=== PATIENT | female | born 1960 | race American Indian/Alaskan Native ===

== ENCOUNTER 2016-12-04 21:08 | Emergency (ER) | payer MEDICARE, MEDICAID ==
[2016-12-04 23:13] VITALS: BP 144/78
--- NOTE | 2016-12-05 09:53 | CR ---
Foot Comp Min 3V Rt INDICATION: pain, swelling, ? Osteomylitis FINDINGS: Mild degenerative narrowing first MTP joint with mild bunion deformity. Soft tissue swelli ng of the second toe. No periosteal reaction or cortical destruction.
--- NOTE | 2016-12-24 18:05 | EDM.PDOC ---
ED HPI GENERAL MEDICAL PROBLEM - General Chief Complaint: Skin Complaint Stated Complaint: R FOOT Time Seen by Provider: 12/04/16 23:13 Source of Information: Reports: Patient History Limitations: Reports: No Limitations - History of Present Illness INITIAL COMMENTS - FREE TEXT/NARRATIVE: History of present illness: [Patient presents with possible infection of the right great toe. This is been going on for a few days. She has no fever with this.] Review of systems: As per history of present illness and below otherwise all systems reviewed and negative. Past medical history: As per history of present illness and as reviewed below otherwise noncontributory. Surgical history: As per history of present illness and as reviewed below otherwise noncontributory. Social history: No reported history of drug or alcohol abuse. Family history: As per history of present illness and as reviewed below otherwise noncontributory. Physical exam: HEENT: Atraumatic, normocephalic, Lungs: Clear to auscultation Heart: S1S2, regular Extremities: The right great toe is mildly erythematous and slightly warm without evidence for an ingrown toenail. Neuro: Awake, alert, oriented. Exam nonfocal. Diagnostics: [] Therapeutics: [] Impression: [Cellulitis right great toe] Plan: [Patient was placed on Keflex and is to follow up with primary care if not improving. She can also use warm sudsy soaks.] Definitive disposition and diagnosis as appropriate pending reevaluation and review of above. Right Feet Pain Score (Numeric/FACES): 6 - Related Data Allergies Allergy/AdvReac Type Severity Reaction Status Date / Time No Known Allergies Allergy Verified 12/04/16 23:13 Home Meds: Home Meds Gabapentin [Gabapentin] 600 mg PO TID 04/13/13 [History] Iron Polysaccharide Complex [Poly-Iron] 150 mg PO BID 04/13/13 [History] carBAMazepine [Carbamazepine] 400 mg PO DAILY 04/13/13 [History] carBAMazepine [Carbamazepine] 600 mg PO DAILY 04/13/13 [History] Triamcinolone Acetonide [Kenalog 0.1% Crm] 1 applic TOP BID PRN 12/04/16 [ History] Past Medical History HEENT History: Reports: Impaired Vision [employer]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 ED EXAM, SKIN/RASH Exam: See Below Course - Vital Signs Last Recorded V/S: Last Vital Signs Temp 35.4 C 12/04/16 23:12 Pulse 81 12/04/16 23:12 Resp 16 12/04/16 23:12 BP 144/78 H 12/04/16 23:12 Pulse Ox 98 12/04/16 23:12 - Orders/Labs/Meds Labs: Laboratory Tests 12/04/16 Range/Units 00:00 WBC 9.2 (4.5-11.0) K/uL RBC 4.51 (3.30-5.50) M/uL Hgb 13.6 (12.0-15.0) g/dL Hct 39.2 (36.0-48.0) % MCV 87 (80-98) fL MCH 30 (27-31) pg MCHC 35 (32-36) % Plt Count 348 (150-400) K/uL Neut % (Auto) 66 (36-66) % Lymph % (Auto) 20 L (24-44) % [place] % (Auto) 13 H (2-6) % Eos % (Auto) 0 L (2-4) % Baso % (Auto) 1 (0-1) % ESR 23 (0-25) mm/hr Departure - Departure Time of Disposition: 18:05 Disposition: Home, Self-Care 01 Clinical Impression: Cellulitis Qualifiers: Site of cellulitis: extremity Site of cellulitis of extremity: lower extremity Laterality: right Qualified Code(s): L03.115 - Cellulitis of right lower limb - Discharge Information Instructions: Cellulitis, Adult Referrals: Zuri Lew NP [Primary Care Provider] - Forms: ED Department Discharge Additional Instructions: Please follow-up with your primary care doctor if not improving. You can also use warm sudsy soaks to try to help resolve this.
== END 2016-12-05 01:21 | disposition home or self-care (01) ==
LOC: JP.ED 21:08
DX: L03.031 Cellulitis of right toe (principal); Z98.51 Tubal ligation status; Z79.899 Other long term (current) drug therapy
CPT/HCPCS: 36415; 73630-26-RT; 73630-RT; 85025; 85651; 99282; 99283

== ENCOUNTER 2017-06-25 13:30 | Emergency (ER) | payer MEDICARE, MEDICAID ==
--- NOTE | 2017-06-25 16:36 | EDM.PDOC ---
ED HPI GENERAL MEDICAL PROBLEM - General Chief Complaint: Neurological Problem Stated Complaint: HAD A SEIZURE Time Seen by Provider: 06/25/17 14:13 Source of Information: Reports: Patient, Other (Zuri Lew from clinic) History Limitations: Reports: No Limitations - History of Present Illness INITIAL COMMENTS - FREE TEXT/NARRATIVE: This patient was sent to the emergency department by her provider Zuri Lew. There is some concern about seizures and hyponatremia. The patient's has a history of what sounds like petit mal seizures and takes Tegretol for this. She was seen in clinic on the her sodium had dropped down to 129 from a previous 134 on about 04 June. There is no reason found for the drop in sodium today sodium is gone down to 124. The patient describes the episodes as first of all seeing a quivering light in her eyes. She was sitting on a bench and the bus and she said her legs just wouldn't work so she could get out of the bus had to be apparently lifted out. She didn't note any kind of jerking and she was completely conscious during the entire episode. Her stepmom says she 's had several episodes like this in the past week some time she seems weak afterwards but never actually post ictal. The episode today lasted about 5 minutes. Stepmotessie says the previous ones sometimes last as much is 2 hours. Her previous seizure activity included jerks and smacking of the lips and so forth so this episode is completely different. Arrangements were made for her to see a neurologist in [place] on August 11. Patient also does not have any symptoms of dysuria see labs patient denies excessive water drinking and other than this episode believe she is pretty healthy given the stepmom concurs. - Related Data Allergies Allergy/AdvReac Type Severity Reaction Status Date / Time No Known Allergies Allergy Verified 06/25/17 13:58 Home Meds: Home Meds Gabapentin [Gabapentin] 600 mg PO TID 04/13/13 [History] Iron Polysaccharide Complex [Poly-Iron] 150 mg PO BID 04/13/13 [History] carBAMazepine [Carbamazepine] 1,600 mg PO ASDIRECTED 04/13/13 [History] Triamcinolone Acetonide [Kenalog 0.1% Crm] 1 applic TOP BID PRN 12/04/16 [ History] Past Medical History HEENT History: Reports: Impaired Vision Cardiovascular History: Reports: Hypertension Genitourinary History: Reports: Urinary Incontinence 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 mental redardation Hematologic History: Reports: Anemia, Iron Deficiency Dermatologic History: Reports: Cellulitis - Infectious Disease History Infectious Disease History: Reports: Other (See Below) Other Infectious Disease History: unknown - Past Surgical History HEENT Surgical History: Reports: Oral Surgery GI Surgical History: Reports: Colonoscopy Female Surgical History: Reports: Tubal Ligation Social & Family History - Tobacco Use Smoking Status *Q: Never Smoker Second Hand Smoke Exposure: No - Caffeine Use Caffeine Use: Reports: Coffee, Soda - Alcohol Use Days Per Week of Alcohol Use: 0 - Recreational Drug Use Recreational Drug Use: No ED ROS GENERAL - Review of Systems Review Of Systems: See Below Constitutional: Reports: No Symptoms HEENT: Reports: No Symptoms Respiratory: Reports: No Symptoms Cardiovascular: Reports: No Symptoms Endocrine: Reports: No Symptoms GI/Abdominal: Reports: No Symptoms : Reports: No Symptoms Musculoskeletal: Reports: No Symptoms Skin: Reports: No Symptoms Neurological: Reports: Seizure Psychiatric: Reports: No Symptoms Hematologic/Lymphatic: Reports: No Symptoms Immunologic: Reports: No Symptoms - Physical Exam Exam: See Below Exam Limited By: No Limitations (She seems mentally slow but is able to give a fairly good history) General Appearance: Alert, WD/WN, No Apparent Distress, Other (She looks a little bit barnes faced but her stepmom says that this is her normal appearance) Eye Exam: Bilateral Eye: EOMI, PERRL Ears: Normal External Exam Throat/Mouth: Normal Inspection Head Exam: Atraumatic Neck: Normal Inspection Respiratory/Chest: No Respiratory Distress (I think another liter 5), Lungs Clear Cardiovascular: Normal Peripheral Pulses, Regular Rate, Rhythm GI/Abdominal: Normal Bowel Sounds, Soft, Non-Tender Neuro Exam (Abbreviated): Alert, Oriented, CN II-XII Intact, Normal Cognition, Other (Gait seems just a little bit wobbly she was also slightly wobbly on Romberg testing but not so much as to cause a positive test. Rapid alternating movements all normal) DTR: 2+: Bicep (R), Bicep (L), Patella (R), Patella (L) Extremities: Normal Inspection Psychiatric: Normal Affect, Normal Mood Skin Exam: Warm, Dry Course - Vital Signs Last Recorded V/S: Last Vital Signs Temp 36.3 C 06/25/17 13:52 Pulse 87 06/25/17 16:37 Resp 16 06/25/17 16:37 BP 145/80 H 06/25/17 16:37 Pulse Ox 98 06/25/17 16:37 - Orders/Labs/Meds Orders: Active Orders 24 hr Category Date Time Status Chest 2V [CR] Urgent Exams 06/25/17 14:55 Taken CORTISOL [REF] Stat Lab 06/25/17 15:00 Received OSMOLALITY [REF] Stat Lab 06/25/17 15:10 Received OSMOLALITY,URINE RANDOM [REF] Stat Lab 06/25/17 15:10 Received Labs: Laboratory Tests 06/25/17 06/25/17 06/25/17 Range/Units 15:00 15:00 15:00 WBC 6.6 (4.5-11.0) K/uL RBC 3.69 (3.30-5.50) M/uL Hgb 10.4 L D (12.0-15.0) g/dL Hct 31.2 L (36.0-48.0) % MCV 85 (80-98) fL MCH 28 (27-31) pg MCHC 33 (32-36) % Plt Count 483 H (150-400) K/uL Neut % (Auto) 73 H (36-66) % Lymph % (Auto) 14 L (24-44) % [place] % (Auto) 12 H (2-6) % Eos % (Auto) 0 L (2-4) % Baso % (Auto) 0 (0-1) % Sodium 123 L (140-148) mmol/L Potassium 4.5 (3.6-5.2) mmol/L Chloride 92 L (100-108) mmol/L Carbon Dioxide 24 (21-32) mmol/L Anion Gap 11.5 (5.0-14.0) mmol/L BUN 9 (7-18) mg/dL Creatinine 0.6 (0.6-1.0) mg/dL Est Cr Clr Drug Dosing 84.78 mL/min Estimated GFR (MDRD) > 60 (>60) Glucose 97 (74-106) mg/dL Calcium 8.3 L (8.5-10.1) mg/dL Total Bilirubin 0.6 (0.2-1.0) mg/dL AST 83 H (15-37) U/L ALT 21 (12-78) U/L Alkaline Phosphatase 463 H (46-116) U/L Total Protein 7.5 (6.4-8.2) g/dL Albumin 3.0 L (3.4-5.0) g/dL Globulin 4.5 H (2.3-3.5) g/dL Albumin/Globulin Ratio 0.7 L (1.2-2.2) TSH, Ultra Sensitive 3.465 (0.358-3.740) uIU/mL Urine Color Urine Appearance Urine pH (4.5-8.0) Ur Specific [place] (1.008-1.030) Urine Protein (NEGATIVE) mg/dL Urine Glucose (UA) (NEGATIVE) mg/dL Urine Ketones (NEGATIVE) mg/dL Urine Occult Blood (NEGATIVE) Urine Nitrite (NEGATIVE) Urine Bilirubin (NEGATIVE) Urine Urobilinogen (NORMAL) mg/dL Ur Leukocyte Esterase (NEGATIVE) Urine RBC (0-5) Urine WBC (0-5) Ur Epithelial Cells Amorphous Sediment Urine Bacteria Urine Mucus Ur Random Sodium (20-110) mmol/L 06/25/17 06/25/17 Range/Units 15:04 15:04 WBC (4.5-11.0) K/uL RBC (3.30-5.50) M/uL Hgb (12.0-15.0) g/dL Hct (36.0-48.0) % MCV (80-98) fL MCH (27-31) pg MCHC (32-36) % Plt Count (150-400) K/uL Neut % (Auto) (36-66) % Lymph % (Auto) (24-44) % [place] % (Auto) (2-6) % Eos % (Auto) (2-4) % Baso % (Auto) (0-1) % Sodium (140-148) mmol/L Potassium (3.6-5.2) mmol/L Chloride (100-108) mmol/L Carbon Dioxide (21-32) mmol/L Anion Gap (5.0-14.0) mmol/L BUN (7-18) mg/dL Creatinine (0.6-1.0) mg/dL Est Cr Clr Drug Dosing mL/min Estimated GFR (MDRD) (>60) Glucose (74-106) mg/dL Calcium (8.5-10.1) mg/dL Total Bilirubin (0.2-1.0) mg/dL AST (15-37) U/L ALT (12-78) U/L Alkaline Phosphatase (46-116) U/L Total Protein (6.4-8.2) g/dL Albumin (3.4-5.0) g/dL Globulin (2.3-3.5) g/dL Albumin/Globulin Ratio (1.2-2.2) TSH, Ultra Sensitive (0.358-3.740) uIU/mL Urine Color Yellow Urine Appearance Turbid Urine pH 6.5 (4.5-8.0) Ur Specific [place] 1.010 (1.008-1.030) Urine Protein 30 H (NEGATIVE) mg/dL Urine Glucose (UA) Normal (NEGATIVE) mg/dL Urine Ketones Negative (NEGATIVE) mg/dL Urine Occult Blood Large (NEGATIVE) Urine Nitrite Positive H (NEGATIVE) Urine Bilirubin Negative (NEGATIVE) Urine Urobilinogen Normal (NORMAL) mg/dL Ur Leukocyte Esterase Large (NEGATIVE) Urine RBC Packed H (0-5) Urine WBC Packed H (0-5) Ur Epithelial Cells Few Amorphous Sediment Few Urine Bacteria Many Urine Mucus Few Ur Random Sodium 50 (20-110) mmol/L - Radiology Interpretation Free Text/Narrative:: Chest x-ray unremarkable - Re-Assessments/Exams Free Text/Narrative Re-Assessment/Exam: 06/25/17 16:58 Labs were drawn on this patient when note sodium is now 123. A urinalysis shows evidence of a bladder infection. I discussed labs with Dr. West. This patient appears to be euvolemic so hydration is not indicated on this patient. My impression is that this is more of a migrainous phenomenon rather than actual seizures. The plan will be to go ahead and do water restriction add additional salt she'll get an MRI tomorrow and Zuri Lew is arranging that. Urine and serum osmolality have been ordered as well as TSH and cortisol levels spot urine sodium also. She'll follow -up in clinic for the rest of this workup. Departure - Departure Time of Disposition: 16:32 Disposition: Home, Self-Care 01 Condition: Fair Clinical Impression: Seizures complicating infection, Hyponatremia - Discharge Information Instructions: Hyponatremia, [id number], Seizure, Adult Referrals: Zuri Lew NP [Primary Care Provider] - Forms: ED Department Discharge Additional Instructions: It isn't clear whether or not the episodes you're having are seizures. It could also be a migraine equivalent where blood to a certain part of your brain gets cut off because of spasms of the blood vessels. You have a low sodium which is getting progressively lower over the past few weeks. A low sodium can lead to seizures. You also have a urinary tract infection. You will need to do the following: Get a brain MRI tomorrow morning. Restrict your water intake. Decreased water intake by about 2 or 3 glasses of water per day. You may increase salt intake. The easiest way is to eat a bag of salted popcorn daily. Do this each day until your doctor tells you otherwise. Continue all of your regular medications including the carbamazepine. Carbamazepine can cause your sodium to drop so at some time in the near future your Dr. may stop this medication but don't stop it until told to do so. Take Bactrim DS one tablet twice daily for one week for a urinary tract infection. The prescription will say for 10 days but you only needed for a week. - My Orders Last 24 Hours: My Active Orders 06/25/17 14:55 Chest 2V [CR] Urgent 06/25/17 15:00 CORTISOL [REF] Stat 06/25/17 15:10 OSMOLALITY [REF] Stat OSMOLALITY,URINE RANDOM [REF] Stat - Assessment/Plan Last 24 Hours: My Active Orders 06/25/17 14:55 Chest 2V [CR] Urgent 06/25/17 15:00 CORTISOL [REF] Stat 06/25/17 15:10 OSMOLALITY [REF] Stat OSMOLALITY,URINE RANDOM [REF] Stat
[2017-06-25 16:38] VITALS: BP 145/80
--- NOTE | 2017-06-26 09:01 | CR ---
Chest 2V HISTORY: Hyponatremia. COMPARISON: 01/07/2013 FINDINGS: Linear scarring or atelectatic change at the peripheral right lung base. Cardiac size and p ulmonary vessels normal. There are no infiltrates or effusions. No pneumothorax. The osseous structur es appear normal. IMPRESSION: No acute pulmonary disease.
== END 2017-06-25 16:52 | disposition home or self-care (01) ==
LOC: JP.ED 13:30
DX: R56.9 Unspecified convulsions (principal); E87.1 Hypo-osmolality and hyponatremia; I10 Essential (primary) hypertension
CPT/HCPCS: 36415; 71046; 71046-26; 80053; 81001; 82533; 83930; 83935; 84300; 84443; 85025; 99284; 99285

== ENCOUNTER 2017-06-28 11:05 | Emergency (ER) | payer MEDICARE, MEDICAID ==
--- NOTE | 2017-06-28 11:58 | EDM.PDOC ---
ED HPI GENERAL MEDICAL PROBLEM - General Chief Complaint: General Stated Complaint: NOT FEELING WELL Time Seen by Provider: 06/28/17 11:45 Source of Information: Reports: Patient, Family, Old Records History Limitations: Reports: No Limitations - History of Present Illness INITIAL COMMENTS - FREE TEXT/NARRATIVE: 56 yo female here after a fall last night. Has been intermittently unsteady on her feet since being seen 06/25/17 for hyponatremia and a UTI. Is on TMP/SMZ for the UTI and family thinks this is worse. No culture was set up apparently. Has been trying to restrict water as directed. No follow up appt was made in the clinic to date. Had a brain MRI 06/26/17 that was nonspecific. Not running fevers. 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 (see below) (Bactrim and water restriction.) Right Upper Back Pain Score (Numeric/FACES): 10 - Related Data Allergies Allergy/AdvReac Type Severity Reaction Status Date / Time No Known Allergies Allergy Verified 06/28/17 11:35 Home Meds: Home Meds Gabapentin [Gabapentin] 600 mg PO TID 04/13/13 [History] Iron Polysaccharide Complex [Poly-Iron] 150 mg PO BID 04/13/13 [History] carBAMazepine [Carbamazepine] 200 mg PO ASDIRECTED 04/13/13 [History] Sulfamethoxazole/Trimethoprim [Sulfamethoxazole-Tmp Ds Tablet] mg PO BID [History] Past Medical History HEENT History: Reports: Impaired Vision Cardiovascular History: Reports: Hypertension Genitourinary History: Reports: Urinary Incontinence 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 mental redardation Hematologic History: Reports: Anemia, Iron Deficiency Dermatologic History: Reports: Cellulitis - Infectious Disease History Infectious Disease History: Reports: Other (See Below) Other Infectious Disease History: unknown - Past Surgical History HEENT Surgical History: Reports: Oral Surgery GI Surgical History: Reports: Colonoscopy Female Surgical History: Reports: Tubal Ligation Social & Family History - Tobacco Use Smoking Status *Q: Never Smoker Second Hand Smoke Exposure: No - Caffeine Use Caffeine Use: Reports: Coffee, Soda - Alcohol Use Days Per Week of Alcohol Use: 0 - Recreational Drug Use Recreational Drug Use: No ED ROS GENERAL - Review of Systems Review Of Systems: See Below Constitutional: Reports: No Symptoms HEENT: Reports: No Symptoms Respiratory: Reports: No Symptoms Cardiovascular: Reports: No Symptoms Endocrine: Reports: No Symptoms GI/Abdominal: Reports: No Symptoms : Reports: Dysuria Musculoskeletal: Reports: No Symptoms Skin: Reports: No Symptoms Neurological: Reports: Difficulty Walking, Gait Disturbance Psychiatric: Reports: No Symptoms ED EXAM, GENERAL - Physical Exam Exam: See Below Exam Limited By: No Limitations General Appearance: Alert, WD/WN, No Apparent Distress Eye Exam: Bilateral Eye: Normal Inspection Ears: Normal External Exam, Normal Canal, Hearing Grossly Normal, Normal TMs Ear Exam: Bilateral Ear: Auricle Normal, Canal Normal, TM normal Nose: Normal Inspection, Normal Mucosa, No Blood Throat/Mouth: Normal Inspection, Normal Lips, Normal Teeth, Normal Oropharynx, Normal Voice, No Airway Compromise Head: Atraumatic, Normocephalic Neck: Normal Inspection, Supple, Non-Tender Respiratory/Chest: No Respiratory Distress, Lungs Clear, Normal Breath Sounds, No Accessory Muscle Use Cardiovascular: Regular Rate, Rhythm, No Edema GI/Abdominal: Normal Bowel Sounds, Soft, Non-Tender, No Distention Back Exam: Normal Inspection. No: CVA Tenderness (R), CVA Tenderness (L) Extremities: Normal Inspection, Normal Range of Motion, Non-Tender, Other ( Trace pedal edema bilaterally) Neurological: Alert, Oriented, CN II-XII Intact, Normal Cognition, No Motor/ Sensory Deficits Psychiatric: Normal Affect, Normal Mood Skin Exam: Warm, Dry, Intact, Normal Color, No Rash Course - Vital Signs Last Recorded V/S: Last Vital Signs Temp 36.2 C 06/28/17 11:45 Pulse 87 06/28/17 11:45 Resp 18 06/28/17 11:45 BP 135/74 06/28/17 11:45 Pulse Ox 96 06/28/17 11:45 - Orders/Labs/Meds Labs: Laboratory Tests 06/28/17 06/28/17 06/28/17 Range/Units 11:56 11:56 12:38 WBC 8.6 (4.5-11.0) K/uL RBC 3.39 (3.30-5.50) M/uL Hgb 9.5 L (12.0-15.0) g/dL Hct 28.8 L (36.0-48.0) % MCV 85 (80-98) fL MCH 28 (27-31) pg MCHC 33 (32-36) % Plt Count 458 H (150-400) K/uL Sodium 129 L (140-148) mmol/L Potassium 4.5 (3.6-5.2) mmol/L Chloride 95 L (100-108) mmol/L Carbon Dioxide 24 (21-32) mmol/L Anion Gap 14.5 H (5.0-14.0) mmol/L BUN 7 (7-18) mg/dL Creatinine 0.7 (0.6-1.0) mg/dL Est Cr Clr Drug Dosing 79.34 mL/min Estimated GFR (MDRD) > 60 (>60) Glucose 100 (74-106) mg/dL Calcium 8.1 L (8.5-10.1) mg/dL Troponin I < 0.017 (0.000-0.056) ng/mL Urine Color Yellow Urine Appearance Slightly cloudy Urine pH 5.0 (4.5-8.0) Ur Specific [place] 1.015 (1.008-1.030) Urine Protein 30 H (NEGATIVE) mg/dL Urine Glucose (UA) Normal (NEGATIVE) mg/dL Urine Ketones Negative (NEGATIVE) mg/dL Urine Occult Blood Negative (NEGATIVE) Urine Nitrite Negative (NEGATIVE) Urine Bilirubin Small (NEGATIVE) Urine Urobilinogen 4 (NORMAL) mg/dL Ur Leukocyte Esterase Small (NEGATIVE) Urine RBC 0-5 (0-5) Urine WBC 10-20 H (0-5) Ur Epithelial Cells Few Amorphous Sediment Not seen Urine Bacteria Moderate Urine Mucus Not seen Departure - Departure Time of Disposition: 13:19 Disposition: Home, Self-Care 01 Condition: Good Clinical Impression: Hyponatremia, Hyponatremia, Cystitis, Frequent falls - Discharge Information Referrals: Zuri Lew NP [Primary Care Provider] - Forms: ED Department Discharge
[2017-06-28 13:31] VITALS: BP 131/62
== END 2017-06-28 13:33 | disposition home or self-care (01) ==
LOC: JP.ED 11:05
DX: E87.1 Hypo-osmolality and hyponatremia (principal); N30.90 Cystitis, unspecified without hematuria; I10 Essential (primary) hypertension
CPT/HCPCS: 36415; 80048; 81001; 84484; 85027; 99282; 99284

== ENCOUNTER 2017-06-30 21:20 | Emergency (ER) | payer MEDICARE, MEDICAID ==
[2017-06-30] MEDS ORDERED: Sodium Chloride 0.9% 10 ML Syringe FLUSH PRN (22:44)
[2017-06-30] MEDS ORDERED: Bacitracin Oint 1 GM U/D Packet TOP ONE (22:45)
[2017-06-30] MEDS ORDERED: Sodium Chloride 0.9% 1,000 ML IV SCH (22:45)
--- NOTE | 2017-06-30 22:53 | EDM.PDOC ---
ED HPI GENERAL MEDICAL PROBLEM - General Chief Complaint: General Stated Complaint: FALL Time Seen by Provider: 06/30/17 22:15 Source of Information: Reports: Patient, Family, Old Records, RN Notes Reviewed History Limitations: Reports: Physical Impairment - History of Present Illness INITIAL COMMENTS - FREE TEXT/NARRATIVE: 56-year-old female presents emergency department today with a frequent falls, she is mentally challenged, this is her third visit to the emergency department once on 25 June, second visit was third of June for the same complaint she has underwent CT scan of the head and MRI which showed no acute process however she fell again this evening hit her head on a chair of which she does have a laceration above the right eye she is complaining of pain in that area she's also complaining of rib pain chest wall pain on the right side and she is unclear how she injured herself. Family members are with today states she has gotten progressively weak over the last 2-3 weeks also of note she has developed hyponatremia down to 123 over the last couple of months as well as anemia of unclear etiology Hip Pain Score (Numeric/FACES): 2 - Related Data Allergies Allergy/AdvReac Type Severity Reaction Status Date / Time No Known Allergies Allergy Verified 06/28/17 11:35 Home Meds: Home Meds Gabapentin [Gabapentin] 600 mg PO TID 04/13/13 [History] Iron Polysaccharide Complex [Poly-Iron] 150 mg PO BID 04/13/13 [History] carBAMazepine [Carbamazepine] 200 mg PO ASDIRECTED 04/13/13 [History] Sulfamethoxazole/Trimethoprim [Sulfamethoxazole-Tmp Ds Tablet] 1 tab PO BID 08/10 [History] Past Medical History HEENT History: Reports: Impaired Vision Cardiovascular History: Reports: Hypertension Genitourinary History: Reports: Urinary Incontinence 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 mental redardation Hematologic History: Reports: Anemia, Iron Deficiency Dermatologic History: Reports: Cellulitis - Past Surgical History HEENT Surgical History: Reports: Oral Surgery GI Surgical History: Reports: Colonoscopy Female Surgical History: Reports: Tubal Ligation Social & Family History - Tobacco Use Smoking Status *Q: Never Smoker Second Hand Smoke Exposure: No - Caffeine Use Caffeine Use: Reports: Coffee, Soda - Alcohol Use Days Per Week of Alcohol Use: 0 - Recreational Drug Use Recreational Drug Use: No ED ROS GENERAL - Review of Systems Review Of Systems: See Below Constitutional: Reports: Weakness, Other (Frequent falls) HEENT: Reports: Eye Pain. Denies: Vision Change Respiratory: Reports: No Symptoms Cardiovascular: Reports: Chest Pain GI/Abdominal: Reports: No Symptoms : Reports: No Symptoms Musculoskeletal: Reports: No Symptoms Skin: Reports: No Symptoms Neurological: Reports: No Symptoms Psychiatric: Reports: No Symptoms ED EXAM, GENERAL - Physical Exam Exam: See Below Free Text/Narrative:: General: Female, not in any distress, alert and oriented x3 HEENT: head is small 1 cm lacerations appreciated above the right eye in the eyelid area completely through the dermis, there is ecchymosis noted around both eyes, normocephalic, eyes pupils equal round reactive to light, sclera clear no conjunctivitis appreciated extraocular eye movements intact. Ears tympanic membranes clear and welsh landmarks and light reflex are present bilaterally canals are clear. Nose no septal deviation, nares are clear, no blood present. Mouth mucosa is moist and pink no erythema or exudate noted in soft palate, tongue is midline uvula is midline, dentition is intact. Neck: Supple no thyromegaly no tracheal deviation. No tenderness to palpation spinally or paraspinally full range of motion without pain Nodes: Cervical nodes subclavicular nodes nontender no palpable lymphadenopathy noted. Lungs: clear to auscultation bilaterally with symmetrical respirations, no adventitious noise appreciated. CV: Regular rate and rhythm S1 and S2 appreciated 2/6 murmurs lsb, rubs or gallops noted. Chest: Tenderness to palpation along the right mid axillary line Abdomen: Soft, nontender, no palpable masses or organomegaly appreciated, no distention no guarding bowel sounds are present, . Neuro: Cranial nerves II through XII grossly intact Skin: Warm and dry, intact Extremities: No tenderness to wrist elbow shoulders bilaterally pelvic rock's is negative no tenderness to knees or ankles bilaterally ED GENERAL MEDICAL PROCEDURES - Laceration/Wound Repair Face Lac/wound length in cm: 1 Appearance: Subcutaneous Distal NVT: Neuro & Vascular Intact, No Tendon Injury Anesthetic Type: Local Local Anesthesia - Lidocaine (Xylocaine): 1% with EPI Local Anesthetic Volume: 1cc Skin Prep: Saline Saline irrigation (cc's): 50 Exploration/Debridement/Repair: Wound Explored Closed with: Sutures Suture Size: other (6-0) # of Sutures: 2 Suture Type: Nylon Tetanus Status Addressed: Yes (2011) Complications: No Course - Vital Signs Last Recorded V/S: Last Vital Signs Temp 98.2 F 06/30/17 21:25 Pulse 86 07/01/17 01:18 Resp 16 07/01/17 01:18 BP 125/70 07/01/17 01:18 Pulse Ox 98 07/01/17 01:18 - Orders/Labs/Meds Orders: Active Orders 24 hr Category Date Time Status EKG Documentation Completion [RC] ASDIRECTED Care 06/30/17 22:50 Active Peripheral IV Care [RC] . DIRECTED Care 06/30/17 22:45 Active Chest Abdomen Pelvis w Cont [CT] Stat Exams 06/30/17 22:40 Taken Head wo Cont [CT] Stat Exams 06/30/17 22:39 Taken Max Facial Sinus wo Cont [CT] Stat Exams 06/30/17 22:39 Taken Sodium Chloride 0.9% [Normal Saline] 1,000 ml Med 06/30/17 22:45 Active IV ASDIRECTED Sodium Chloride 0.9% [Normal Saline] 70 ml Med 06/30/17 23:00 Active IV ASDIRECTED Sodium Chloride 0.9% [Saline Flush] Med 06/30/17 22:44 Active 10 ml FLUSH ASDIRECTED PRN Peripheral IV Insertion Adult [OM.PC] Urgent Oth 06/30/17 22:44 Ordered EKG 12 Lead [EK] Stat Ther 06/30/17 22:50 Ordered Medication Orders Sodium Chloride (Normal Saline) 1,000 mls @ 500 mls/hr IV ASDIRECTED NICHOLE Last Admin: 06/30/17 23:53 Dose: 500 mls/hr Sodium Chloride (Normal Saline) 70 mls @ 3 mls/sec IV ASDIRECTED NICHOLE Last Admin: 06/30/17 23:28 Dose: 3 mls/sec Sodium Chloride (Saline Flush) 10 ml FLUSH ASDIRECTED PRN PRN Reason: Keep Vein Open Last Admin: 06/30/17 23:54 Dose: 10 ml Labs: Laboratory Tests 06/30/17 06/30/17 06/30/17 Range/Units 22:53 22:53 22:53 WBC 8.2 (4.5-11.0) K/uL RBC 3.18 L (3.30-5.50) M/uL Hgb 8.8 L (12.0-15.0) g/dL Hct 26.9 L (36.0-48.0) % MCV 85 (80-98) fL MCH 28 (27-31) pg MCHC 33 (32-36) % Plt Count 419 H (150-400) K/uL Neut % (Auto) 76 H (36-66) % Lymph % (Auto) 13 L (24-44) % [place] % (Auto) 11 H (2-6) % Eos % (Auto) 0 L (2-4) % Baso % (Auto) 0 (0-1) % Sodium 124 L (140-148) mmol/L Potassium 4.2 (3.6-5.2) mmol/L Chloride 95 L (100-108) mmol/L Carbon Dioxide 21 (21-32) mmol/L Anion Gap 12.2 (5.0-14.0) mmol/L BUN 9 (7-18) mg/dL Creatinine 0.6 (0.6-1.0) mg/dL Est Cr Clr Drug Dosing 84.78 mL/min Estimated GFR (MDRD) > 60 (>60) Glucose 100 (74-106) mg/dL Calcium 7.8 L (8.5-10.1) mg/dL Total Bilirubin 0.6 (0.2-1.0) mg/dL AST 60 H (15-37) U/L ALT 16 (12-78) U/L Alkaline Phosphatase 380 H (46-116) U/L Lactate Dehydrogenase 664 H (82-234) U/L Total Protein 6.7 (6.4-8.2) g/dL Albumin 2.6 L (3.4-5.0) g/dL Globulin 4.1 H (2.3-3.5) g/dL Albumin/Globulin Ratio 0.6 L (1.2-2.2) Meds: Medications Generic Name Dose Route Start Last Admin Trade Name Freq PRN Reason Stop Dose Admin Sodium Chloride 1,000 mls @ 500 mls/hr 06/30/17 22:45 06/30/17 23:53 Normal Saline IV 500 mls/hr ASDIRECTED NICHOLE Administration Sodium Chloride 70 mls @ 3 mls/sec 06/30/17 23:00 06/30/17 23:28 Normal Saline IV 3 mls/sec ASDIRECTED NICHOLE Administration Sodium Chloride 10 ml 06/30/17 22:44 06/30/17 23:54 Saline Flush FLUSH 10 ml ASDIRECTED PRN Administration Keep Vein Open Discontinued Medications Generic Name Dose Route Start Last Admin Trade Name Freq PRN Reason Stop Dose Admin Bacitracin 1 dose 06/30/17 22:45 06/30/17 23:04 Bacitracin Oint 1 Gm TOP 06/30/17 22:46 1 dose ONETIME ONE Administration Iopamidol 100 ml 06/30/17 22:59 06/30/17 23:28 Isovue-300 (61%) IV 06/30/17 23:00 100 ml . DIRECTED STA Administration Lidocaine HCl 5 ml 06/30/17 22:45 06/30/17 23:04 Xylocaine-Mpf 1% INJECT 06/30/17 22:46 5 ml ONETIME ONE Administration Ondansetron HCl 4 mg 06/30/17 23:46 06/30/17 23:52 Zofran IVPUSH 06/30/17 23:47 4 mg ONETIME ONE Administration Departure - Departure Time of Disposition: 01:59 Disposition: DC/Tfer to Acute Hospital 02 Condition: Poor Clinical Impression: Liver mass - Discharge Information Referrals: Zuri Lew NP [Primary Care Provider] - Forms: ED Department Discharge - My Orders Last 24 Hours: My Active Orders 06/30/17 22:39 Head wo Cont [CT] Stat Max Facial Sinus wo Cont [CT] Stat 06/30/17 22:40 Chest Abdomen Pelvis w Cont [CT] Stat 06/30/17 22:44 Sodium Chloride 0.9% [Saline Flush] 10 ml FLUSH ASDIRECTED PRN Peripheral IV Insertion Adult [OM.PC] Urgent 06/30/17 22:45 Peripheral IV Care [RC] . DIRECTED Sodium Chloride 0.9% [Normal Saline] 1,000 ml IV ASDIRECTED 06/30/17 22:50 EKG Documentation Completion [RC] ASDIRECTED EKG 12 Lead [EK] Stat 06/30/17 23:00 Sodium Chloride 0.9% [Normal Saline] 70 ml IV ASDIRECTED - Assessment/Plan Last 24 Hours: My Active Orders 02/05/18 22:39 Head wo Cont [CT] Stat Max Facial Sinus wo Cont [CT] Stat 06/30/17 22:40 Chest Abdomen Pelvis w Cont [CT] Stat 06/30/17 22:44 Sodium Chloride 0.9% [Saline Flush] 10 ml FLUSH ASDIRECTED PRN Peripheral IV Insertion Adult [OM.PC] Urgent 06/30/17 22:45 Peripheral IV Care [RC] . DIRECTED Sodium Chloride 0.9% [Normal Saline] 1,000 ml IV ASDIRECTED 06/30/17 22:50 EKG Documentation Completion [RC] ASDIRECTED EKG 12 Lead [EK] Stat 06/30/17 23:00 Sodium Chloride 0.9% [Normal Saline] 70 ml IV ASDIRECTED Plan: Assessment Acuity = acute Site and laterality = hyponatremia, weakness, frequent falls with hepatic mass complicated in a patient with developmental disability Etiology = unclear etiology Manifestations = weight loss Location of injury = Home Lab values = hemoglobin low at 8.8 consistent normochromic anemia sodium low at 124 consistent with severe hyponatremia alkaline phosphatase elevated at 380 LDH elevated at 664 albumin low at 2.[address] scan shows large hepatic mass with lymphadenopathy concern for malignancy with metastases Plan Called and discussed the case with Dr. Martinez from kindly accepted the patient in transport for further evaluation she will be transported via EMS ground This note was dictated using [employer] voice recognition software please call with any questions on syntax or kylah.
[2017-06-30] MEDS ORDERED: Iopamidol 612 MG/ML 100 ML Bottle IV STA (22:59)
[2017-06-30] MEDS ORDERED: Ondansetron 4 MG/2 ML SDV IVPUSH ONE (23:46)
[2017-07-01 01:21] VITALS: BP 125/70
== END 2017-07-01 03:04 ==
LOC: JP.ED 21:20
DX: S01.111A Laceration without foreign body of right eyelid and periocular area, initial encounter (principal); R16.0 Hepatomegaly, not elsewhere classified; E87.1 Hypo-osmolality and hyponatremia; R53.1 Weakness; R63.4 Abnormal weight loss; I10 Essential (primary) hypertension; Z79.899 Other long term (current) drug therapy; W22.03XA Walked into furniture, initial encounter; Z73.6 Limitation of activities due to disability
CPT/HCPCS: 12011; 36415; 70450; 70486; 71260; 74177; 80053; 83615; 85025; 93005; 93010; 96361; 96374; 99284; 99285; J2405; J7030; J7040; J7050; Q9967